=== PATIENT | female | born 1965 | race Caucasian/White ===

== ENCOUNTER 2023-09-25 21:07 | Inpatient (IN) | payer OTHER, SELFPAY ==
[2023-09-25] VITALS (8 sets, daily range): BP systolic 134–171; BP diastolic 63–81; PULSE 79–87; RESP 16–18; TEMP 36.8; O2SAT 95–97; BMI 42.0; BMI 41.0
--- NOTE | 2023-09-25 21:17 | CRLHL7_ITS ---
For Patients: As a result of the Century Cures Act, medical imaging exams and procedure reports are released immediately into your electronic medical record. You may view this report before your referring provider. If you have questions, please contact your health care provider. CLINICAL HISTORY: Left facial paralysis; headache and neck pain. TECHNIQUE: Standard helical CT image acquisition through the head was performed. COMPARISON: None available. FINDINGS: No CT evidence of acute intracranial hemorrhage, extra-axial collection, mass effect or midline shift. Barraza-white matter differentiation is preserved. The ventricles are normal in size and morphology. The calvarium is unremarkable. The orbits are unremarkable. Very mild mucosal thickening of the maxillary sinuses as well as the left sphenoid sinus. IMPRESSION: No CT evidence of acute intracranial abnormality. Please note that all CT scans at this facility use dose modulation, iterative reconstruction, and/or weight-based dosing when appropriate to reduce radiation dose to as low as reasonably achievable. Dictated by Arthur Rose MD @ 09/25/2023 10:34:25 PM (Electronically Signed)
--- NOTE | 2023-09-25 21:17 | CRLHL7_ITS ---
For Patients: As a result of the Century Cures Act, medical imaging exams and procedure reports are released immediately into your electronic medical record. You may view this report before your referring provider. If you have questions, please contact your health care provider. CLINICAL HISTORY: Left facial paralysis; headache and neck pain. TECHNIQUE: Standard helical CT image acquisition through the neck was performed after intravenous contrast bolus enhancement. 3D and MIP reconstructions were performed at a separate workstation and permanently archived. COMPARISON: None available. FINDINGS: The origins of the great vessels from the aortic arch are patent. The common carotid arteries are patent. No significant luminal stenoses of the proximal ICAs by NASCET criteria. The more distal cervical segments of the ICAs are patent. The origins and cervical segments of the vertebral arteries are patent. IMPRESSION: Patent cervical arterial vasculature without hemodynamically significant luminal stenosis. Please note that all CT scans at this facility use dose modulation, iterative reconstruction, and/or weight-based dosing when appropriate to reduce radiation dose to as low as reasonably achievable. Dictated by Arthur Rose MD @ 09/25/2023 10:38:28 PM (Electronically Signed)
--- NOTE | 2023-09-25 21:17 | CRLHL7_ITS ---
For Patients: As a result of the Century Cures Act, medical imaging exams and procedure reports are released immediately into your electronic medical record. You may view this report before your referring provider. If you have questions, please contact your health care provider. CLINICAL HISTORY: Left-sided facial paralysis; headache and neck pain. TECHNIQUE: Standard helical CT image acquisition through the head following the administration of intravenous contrast was performed. 3D and MIP reconstructions were performed at a separate workstation and permanently archived. COMPARISON: None available. FINDINGS: No intracranial proximal large vessel occlusion or flow-limiting luminal stenosis. No evidence of cerebral aneurysm. No findings to suggest an arterial-venous shunting lesion. The major dural venous sinuses and deep venous system are patent. IMPRESSION: No intracranial proximal large vessel occlusion, flow-limiting luminal stenosis, or cerebral aneurysm. Please note that all CT scans at this facility use dose modulation, iterative reconstruction, and/or weight-based dosing when appropriate to reduce radiation dose to as low as reasonably achievable. Dictated by Arthur Rose MD @ 09/25/2023 10:40:28 PM (Electronically Signed)
[2023-09-25] MEDS: ASPIRIN 81 MG TAB.CHEW 324 MG PO (21:30)
--- NOTE | 2023-09-25 21:40 | ED_ITS ---
HPI - General Adult General Date Seen: 09/25/23 Chief complaint: Neuro Symptoms/Altered Deficit Stated complaint: Possible stroke--L side face numb Time Seen by Provider: 09/25/23 21:13 Source: patient and family Mode of arrival: ambulatory Limitations: no limitations History of Present Illness HPI narrative: Patient is a 57-year-old here for evaluation of left facial droop. She says that a friend of hers mentions something about yesterday but she did not really notice it until today. She is not able to move the left side of her face and is not able to close the left eye. Denies any sensory changes or pain. No other neurologic complaints, no history of similar. She says she takes medicine for blood pressure, and ?old lady pills, not clear with that means. She has not had any fevers or illness, no rashes. She denies tobacco use, social alcohol. Related Data Home Medications ?Medication ?Instructions ?Recorded ?Confirmed hydrochlorothiazide 12.5 mg capsule 12.5 mg PO DAILY 09/25/23 09/25/23 hydroxyzine HCl 10 mg tablet 10 mg PO 3XD 09/25/23 09/25/23 ospemifene 60 mg tablet (Osphena) 60 mg PO DAILY 09/25/23 09/25/23 Allergies Allergy/AdvReac Type Severity Reaction Status Date / Time Penicillins Allergy Unknown Verified 09/25/23 22:00 Review of Systems Status of ROS: Reports: 10 or more systems reviewed and unremarkable except as noted in History and below Exam Narrative: Exam Narrative: Vital signs as noted above. In general, an alert, nontoxic woman. She is conversant, pleasant. Head: Normocephalic, atraumatic. Eyes: Pupils are equal reactive. Extraocular movements are full. Conjunctivae are normal. ENT: Mucous membranes are moist. Throat is normal. Neck: Supple without lymphadenopathy. Heart: Regular rate and rhythm. No murmur or rub. Lungs: Clear bilaterally. No increased work of breathing, crackles or wheezes. Abdomen: Soft and nontender. No organomegaly. Extremities: Well perfused. No edema. No calf tenderness. Pulses intact. Neurologic: Patient is alert and oriented to person and place. Speech is fluent. Left facial paralysis most prominent in the lower face, she does have partial movement of the forehead. She is not able to close left eye. Sensation is intact. Moves all extremities equally. Gait stable. Affect: Normal. Skin: Warm and dry. Well perfused. Const: Vital Signs, click to edit/add: Vital Signs - 24 hr 09/25/23 21:14 09/25/23 22:11 09/25/23 22:12 Pulse Rate 82 79 Pulse Rate [Pulse Oximeter] 87 Respiratory Rate 16 16 Blood Pressure 134/63 Blood Pressure [Le ft Upper Arm] 166/81 H Pulse Oximetry 95 96 97 Oxygen Delivery Me thod Room Air 09/25/23 22:15 Pulse Rate 79 Pulse Rate [Pulse Oximeter] Respiratory Rate Blood Pressure Blood Pressure [Le ft Upper Arm] Pulse Oximetry 95 Oxygen Delivery Me thod Documenting provider has reviewed patient's vital signs: yes Course Course ED Course: Following brief initial evaluation, I ordered a CT and CT angiogram. I did talk with Neurology about this patient. It sounds as if symptoms likely started sometime yesterday, overall most suggestive of a Monroy's palsy, but will obtain the CT and CT angiogram tonight. It is after hours an MRI is not available. MRI recommended, either inpatient tomorrow morning or outpatient if patient declines admission. I ordered aspirin 324 mg. Labs pending. EKG by my review shows a sinus rhythm, ventricular rate of 80, right bundle-branch block. CT and CT angiogram read by a Radiology is negative. Of note her labs show sodium of 120, hemoglobin is 9.7. She is uncertain if she has been anemic in the past, did have some blood in her stool at 1 point and had a colonoscopy which she tells me was unremarkable. She says she has also had endoscopy which showed some damage to her esophagus from gastroesophageal reflux, but no ulcers. It does not sound like she has been significantly symptomatic related to the sodium, I did order normal saline but elected not to use 3% saline at this time. Other labs are unremarkable. I recommended inpatient stay for MRI tomorrow to rule out a central cause for her facial weakness, as well as monitor sodium level. 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 She is agreeable. Vital Signs Vital signs: Initial Vital Signs Pulse Rate 87 09/25/23 21:14 Respiratory Rate 16 09/25/23 21:14 Blood Pressure 166/81 H 09/25/23 21:14 Blood Pressure Mean 109 H 09/25/23 21:14 Blood Pressure Position Supine 09/25/23 21:14 Pulse Oximetry 95 09/25/23 21:14 Oxygen Delivery Method Room Air 09/25/23 21:14 Vital Signs Pulse Rate 87 09/25/23 21:14 Respiratory Rate 16 09/25/23 21:14 Blood Pressure 166/81 H 09/25/23 21:14 Pulse Oximetry 95 09/25/23 21:14 Oxygen Delivery Method Room Air 09/25/23 21:14 Pulse Rate 79 09/25/23 22:15 Respiratory Rate 16 09/25/23 22:12 Blood Pressure 134/63 09/25/23 22:12 Pulse Oximetry 95 09/25/23 22:15 Oxygen Delivery Method Room Air 09/25/23 21:14 Medications Administered Medications: Discontinued Medications Generic Name Dose Route Start Last Admin Trade Name Freq PRN Reason Stop Dose Admin Aspirin 324 mg 09/25/23 21:17 09/25/23 21:30 Aspirin 81 Mg Tab.Chew PO 09/25/23 21:18 324 mg ONCE ONE Administration Medical Decision Making Lab Data Labs: Lab Results 09/25/23 Range/Units 21:17 WBC 5.83 (4.50-11.00) K/uL RBC 3.64 L (4.00-5.20) m/uL Hgb 9.7 L (12.0-16.0) gm/dL Hct 29.4 L (33.0-51.0) % MCV 81 (80-100) fL MCH 27 (26-34) pg MCHC 33 (32-36) gm/dL RDW Coeff of [place] 14.6 (11.5-15.5) % Plt Count 278 (140-440) K/uL Neut % (Auto) 66.8 (42.0-72.0) % Lymph % (Auto) 17.2 L (20-44) % [place] % (Auto) 13.6 H (0.0-11.0) % Eos % (Auto) 1.4 (0.0-7.0) % Baso % (Auto) 1.0 (0.0-3.0) % Neut # (Auto) 3.90 (1.7-7.0) K/uL Lymph # (Auto) 1.00 (0.90-2.90) K/uL [place] # (Auto) 0.80 (0.00-0.90) K/UL Eos # (Auto) 0.08 (0.00-0.50) K/uL Baso # (Auto) 0.06 (0.00-0.30) K/uL Abs Immat Gran (auto) 0.00 (0.00-0.30) K/uL Imm/Tot Granulo (auto) 0.0 % ESR 35 H (2-20) mm/hr Sodium 120 L* (135-149) mmol/L Potassium 3.3 L (3.6-5.1) mmol/L Chloride 86 L (96-114) mmol/L Carbon Dioxide 26 (20-32) mmol/L Anion Gap 8 (7-15) mEq/L BUN 15 (7-30) mg/dL Creatinine 1.3 (0.5-1.5) mg/dL Estimated Creat Clear 34.71 Estimated GFR 48 ml/min Glucose 108 (60-115) mg/dL Calcium 8.7 (8.4-10.6) mg/dL C-Reactive Protein 0.6 (0.5-1.0) mg/dL Discharge Plan Discharge Clinical Impression: Weakness on left side of face, Hyponatremia Patient Disposition: Admitted As Observation Condition: Stable
[2023-09-25 21:48] LABS: Basophils Absolute Auto 0.06 K/uL (0.00-0.30); Eosinophils Absolute Auto 0.08 K/uL (0.00-0.50); Eosinophils Percent Auto 1.4 % (0.0-7.0); Hematocrit 29.4 % (33.0-51.0); Hemoglobin* 9.7 gm/dL (12.0-16.0); Lymphocytes Percent Auto 17.2 % (20-44); Mean Corpuscular HGB Conc 33 gm/dL (32-36); Mean Corpuscular Hemoglobin 27 pg (26-34); Mean Corpuscular Volume 81 fL (80-100); Monocytes Percent Auto 13.6 % (0.0-11.0); Neutrophils Percent Auto 66.8 % (42.0-72.0); Platelet Count* 278 K/uL (140-440); RDW Coefficient of Variation % 14.6 % (11.5-15.5); Red Blood Count 3.64 m/uL (4.00-5.20); White Blood Count* 5.83 K/uL (4.50-11.00)
[2023-09-25 21:50] LABS: Slide Review Reflex No
[2023-09-25 22:12] LABS: Chloride* 86 mmol/L (96-114)
[2023-09-25 22:13] LABS: Potassium* 3.3 mmol/L (3.6-5.1)
[2023-09-25 22:15] LABS: Creatinine* 1.3 mg/dL (0.5-1.5); Est. Creatinine Clearance* 34.71; Estimated Glomerular Filt Rate 48 ml/min
[2023-09-25 22:16] LABS: Anion Gap 8 mEq/L (7-15); Blood Urea Nitrogen* 15 mg/dL (7-30); Calcium* 8.7 mg/dL (8.4-10.6); Carbon Dioxide* 26 mmol/L (20-32); Glucose* 108 mg/dL (60-115)
[2023-09-25 22:19] LABS: C Reactive Protein* 0.6 mg/dL (0.5-1.0)
[2023-09-25 22:25] LABS: Sodium* 120 mmol/L (135-149)
[2023-09-25 22:30] LABS: Erythrocyte SedimentationRate* 35 mm/hr (2-20)
--- NOTE | 2023-09-25 22:55 | PM.IMHP1 ---
Hospitalist- H&P: HPI History of Present Illness Date Seen: 09/25/23 Chief complaint: Possible stroke--L side face numb Narrative: ADMISSION HISTORY AND PHYSICAL - HOSPITALIST Chief Complaint: Left facial droop HPI: 57-year-old with a history of osteopenia, daily alcohol use, hypertension, obesity presents with 2 day history of left-sided facial droop. She states somebody noticed it yesterday but she did make much of it. No tingling or paresthesias. She noticed looking in the mirror today that she noticed a little drooping at her corner of her mouth and eye. She had trouble drinking from a cup. Friends today encouraged her to get checked out for a stroke. No head injury. some vomiting/nausea this week. mild headache after arriving in the ED. Reports a lot of beer drinking this weekend. Drinks daily, usually just beer. She is seen in [place] at [facility]. She had her coco on her phone and I was able to see a sodium from June 2023 of 135 and normal potassium. Creat was 1.23. She takes HCTZ for hypertension, atarax for rashes/itching with zyrtec. She takes evista for osteopenia/porosis. ER COURSE: CTA of her head neck were obtained, neuro consult obtained. Labs noted a significant hyponatremia of 120 and a mild hypokalemia. Moderate anemia as well. No previous records in [facility]. Hospital medicine team was asked to admit for the hyponatremia and follow-up on the left facial drop with MR in the am. CODE STATUS: FULL CODE EMERGENCY CONTACT PLAN: Name Aki Oates Rel To Pat I've updated the PFSH, medications and allergies in the Expanse tabs. INVESTIGATIONS: LABS/MICRO/ECG/IMAGING Initially 166/81, 134/63 Pulse 70s to 80s Respiratory rate 16 Pulse ox 97% on room Stated weight 97.5 CBC reflects a normal white blood cell count. Hemoglobin 9.7. Normal platelets. MCV 81. ESR 35 Sodium 120. Potassium 3.3. Chloride 86. Creatinine 1.3, BUN 15 Glucose 108 C reactive protein 0.6 CTA, CT head Patent cervical arterial vasculature without hemodynamically significant luminal stenosis. No intracranial proximal large vessel occlusion, flow-limiting luminal stenosis, or cerebral aneurysm. No CT evidence of acute intracranial abnormality. REVIEW OF SYSTEMS: 12-point ROS completed with patient and negative unless otherwise stated in HPI or below. PHYSICAL EXAM: CONSTITUTIONAL: Calm, appropriate. VITAL SIGNS: see record. HEENT: Normocephalic, atraumatic. PERRL, EOMI, conjunctivae pink, no scleral icterus. Ears and nose externally normal. Pharynx normal. NECK: No JVD. No carotid bruit, no thyromegaly, no adenopathy. CHEST: Clear to auscultation bilaterally HEART: S1 and S2 normal. No harsh murmurs. Edema MUSCULOSKELETAL: No gross joint deformity or swelling. NEURO: Clear left sided facial weakness (brow, eye, mouth), limited to face. the rest of the exam is normal. SKIN: No rashes, petechiae, concerning changes PSYCHIATRIC: Euthymic. ADMIT TO MEDSURG: FLOOR CARE DVT: SCDs, ambulation, short hospital stay GI: PO intake Time spent: Today I spent 75 minutes seeing the patient, discussing the patient with ER staff, reviewing Expanse and EPIC notes/diagnostics, discussing the care plan with our care time that includes social work, PT/OT, pharmacy, RT, fci and documenting my impressions and plan in the medical record. [facility] Medical History (Updated 09/25/23 @ 23:41 by Flower Trinh MD) Environmental allergies ?Z91.09 - Other allergy status, other than to drugs and biological substances (ICD-10) Obesity ?E66.9 - Obesity, unspecified (ICD-10) Osteopenia ?M85.80 - Other specified disorders of bone density and structure, unspecified site (ICD-10) Hypertension ?I10 - Essential (primary) hypertension (ICD-10) Alcohol abuse, daily use ?F10.10 - Alcohol abuse, uncomplicated (ICD-10) Surgical History (Updated 09/25/23 @ 23:41 by Flower Trinh MD) Status post surgical removal of malignant neoplasm of skin ?Z98.890 - Other specified postprocedural states (ICD-10) History of endometrial ablation ?Z98.890 - Other specified postprocedural states (ICD-10) History of root canal procedure ?Z98.890 - Other specified postprocedural states (ICD-10) S/P hysterectomy ?Z90.710 - Acquired absence of both cervix and uterus (ICD-10) Social History What is your current living situation?: I presently have a place to live Problems where you live: other Problems where you live details: N/A In the past 12 months, utilities in danger of being shut off: no In past 12 months, lack of transportation kept you from medical appts, meetings, work, or getting things needed for daily living: no In the past 12 mos, have been you worried that your food would run out before you had money to buy more?: never true In the past 12 mos, the food you bought just didn't last and you didn't have money to buy more?: never true Highest level of school completed/degree received: 12th grade, no diploma Smoking Status: Never smoker How often do you have a drink containing alcohol: 2-3 times a week Alcohol type: beer How often do you have six or more drinks on one occasion: Never AUDIT-C Alcohol total score: 3 Non-prescribed substance use: denies use Caffeine: Yes How often does anyone, including family, friends and others, physically hurt you: never How often does anyone, including family, friends and others, insult or talk down to you: never How often does anyone, including family, friends and others, threaten you with harm: never How often does anyone, including family, friends and others, scream or curse at you: never service: No Meds Home Medications and Allergies Home Medications ?Medication ?Instructions ?Recorded ?Confirmed ?Type hydrochlorothiazide 12.5 mg capsule 12.5 mg PO DAILY 09/25/23 09/25/23 History hydroxyzine HCl 10 mg tablet 10 mg PO 3XD 09/25/23 09/25/23 History ospemifene 60 mg tablet (Osphena) 60 mg PO DAILY 09/25/23 09/25/23 History Allergies Allergy/AdvReac Type Severity Reaction Status Date / Time Penicillins Allergy Unknown Verified 09/25/23 22:00 Exam Const: Vital Signs, click to edit/add: Vital Signs - 24 hr 09/25/23 21:14 09/25/23 22:11 09/25/23 22:12 Pulse Rate 82 79 Pulse Rate [Pulse Oximeter] 87 Respiratory Rate 16 16 Blood Pressure 134/63 Blood Pressure [Le ft Upper Arm] 166/81 H Pulse Oximetry 95 96 97 Oxygen Delivery Me thod Room Air 09/25/23 22:15 Pulse Rate 79 Pulse Rate [Pulse Oximeter] Respiratory Rate Blood Pressure Blood Pressure [Le ft Upper Arm] Pulse Oximetry 95 Oxygen Delivery Me thod Hospitalist - H&P: Result Labs Labs: Short CBC 09/25/23 Range/Units 21:17 WBC 5.83 (4.50-11.00) K/uL Hgb 9.7 L (12.0-16.0) gm/dL Hct 29.4 L (33.0-51.0) % Plt Count 278 (140-440) K/uL BMP 09/25/23 21:17 Sodium 120 L* Potassium 3.3 L Chloride 86 L Carbon Dioxide 26 BUN 15 Creatinine 1.3 Glucose 108 Calcium 8.7 Assessment and Plan Assessment and plan (1) Hyponatremia: Problem comment: -no FENA, serum or urine osm available -hold HCTZ -protein supplements in lieu of salt tabs -free water restriction -NS -asymptomatic so holding on 3% therapy -q4 hour labs Status: Acute (2) Weakness on left side of face: Problem comment: -neuro consult indicates likely [place] Palsy -MR in the am -monitor neuro symptoms Status: Acute (3) Alcohol abuse, daily use: Problem comment: -beer drinker -getting UDS and alcohol level -CIWA ordered Status: Acute (4) Hypertension: Problem comment: -hold HCTZ -monitor Status: Acute (5) Obesity: Status: Acute (6) Environmental allergies: Problem comment: atarax and zyrtec prn Status: Inactive
[2023-09-25] MEDS: PANTOPRAZOLE SODIUM 40 MG INJ IVP (23:08)
[2023-09-25] MEDS: 0.9 % SODIUM CHLORIDE 1000 ml 1,000 ML IV (23:09)
[2023-09-26] VITALS (13 sets, daily range): BP systolic 129–189; BP diastolic 63–85; PULSE 68–97; RESP 18–20; TEMP 36.7–37.2; O2SAT 95–97
[2023-09-26 00:13] LABS: Albumin* 4.3 g/dL (3.3-5.0)
[2023-09-26 00:15] LABS: Iron* 41 ug/dL (37-170)
[2023-09-26] MEDS: 0.9 % SODIUM CHLORIDE 1000 ml 1,000 ML IV (00:15)
[2023-09-26 00:16] LABS: Alanine Aminotransferase* 39 U/L (4-35); Alkaline Phosphatase* 79 U/L (40-150); Aspartate Amino Transferase* 78 U/L (12-35); Bilirubin Direct* 0.5 mg/dL (0.0-0.5); Bilirubin Total* 0.6 mg/dL (0.1-1.5); Total Protein* 8.5 g/dL (6.0-8.3)
[2023-09-26] MEDS: 0.9 % SODIUM CHLORIDE 1000 ml 1,000 ML 125 ML IV (00:16)
[2023-09-26 00:25] LABS: Percent Iron Saturation 9 % (20-50); Total Iron Binding Capacity 475 ug/dL (265-497)
[2023-09-26 01:57] LABS: Amphetamine Screen Urine Negative (Negative); Barbiturate Screen Urine Negative (Negative); Benzodiazepines Screen Urine Negative (Negative); Cannabinoid Screen Urine POSITIVE (Negative); Cocaine Screen Urine Negative (Negative); Methadone Screen Urine Negative (Negative); Methamphetamines Screen Urine Negative (Negative); Opiate Screen Urine Negative (Negative); Oxycodone Screen Urine Negative (Negative); Phencyclidine Screen Urine Negative (Negative); Tricyclic Antidepressant Urine Negative (Negative)
[2023-09-26 02:12] LABS: Chloride* 92 mmol/L (96-114); Potassium* 3.4 mmol/L (3.6-5.1); Sodium* 126 mmol/L (135-149)
[2023-09-26 02:14] LABS: Creatinine* 1.2 mg/dL (0.5-1.5); Estimated Glomerular Filt Rate 53 ml/min
[2023-09-26 02:15] LABS: Appearance Urine Clear (Clear); Bilirubin Urine Negative (Negative); Blood Urine 2+ (Negative); Color Urine Yellow (Yellow); Glucose Urine Negative (Negative); Ketones Urine Negative (Negative); Leukocyte Esterase Urine Trace (Negative); Nitrite Urine Negative (Negative); Protein Urine Negative (Negative); Urobilinogen Urine 0.2 (0.2-1.0)
[2023-09-26 02:15] LABS: Anion Gap 8 mEq/L (7-15); Blood Urea Nitrogen* 13 mg/dL (7-30); Calcium* 8.3 mg/dL (8.4-10.6); Carbon Dioxide* 26 mmol/L (20-32); Glucose* 88 mg/dL (60-115)
[2023-09-26 02:16] LABS: Bacteria Urine Few; RBC Urine 0-2 (0-2); Squamous Epithelial Cell Urine Few (None-Few)
[2023-09-26] MEDS: ACETAMINOPHEN 325 MG TABLET PO ×2 (03:02→10:29)
--- NOTE | 2023-09-26 04:28 | PC.NURSE ---
Shift note: Pt arrived to the unit on a wheelchair accompanied by Ed staff. Conscious, alert, and oriented on arrival. Cognitive intact, neuro intact except facial asymmetry and drooping of the right side of the face. IV N/S 1000ml bolus given for low Na level as prescribed. Pt refused SCD, 12 Lead EKG done, tele applied and appeared to be 1st degree HB. CWAIR monitored and the highest number was 2. Tylenol given for headache.MRI questionnaire completed. Pt oriented to her room and educated on the hospital visiting policy and POC. Bp was high on admission but tends to decrease overnight. Pt had adequate sleep with minimal interruption from frequency of urination.
[2023-09-26 08:26] LABS: Sodium* 128 mmol/L (135-149)
[2023-09-26 08:44] LABS: Chloride* 97 mmol/L (96-114); Potassium* 3.4 mmol/L (3.6-5.1)
[2023-09-26 08:46] LABS: Creatinine* 1.2 mg/dL (0.5-1.5); Estimated Glomerular Filt Rate 53 ml/min
[2023-09-26 08:47] LABS: Anion Gap 3 mEq/L (7-15); Blood Urea Nitrogen* 13 mg/dL (7-30); Calcium* 8.5 mg/dL (8.4-10.6); Carbon Dioxide* 28 mmol/L (20-32); Glucose* 89 mg/dL (60-115)
--- NOTE | 2023-09-26 09:45 | P.IMPN_ITS ---
Progress Note: A&P Assessment and plan (1) Weakness on left side of face: Problem details: -neuro consult indicates likely [place] Palsy 09/25 MRI Brain negative for CVA; Neurology consult ordered; ?start prednisone will defer to neurology Status: Acute (2) Hyponatremia: Problem details: -no FENA, serum or urine osm available -hold HCTZ -protein supplements in lieu of salt tabs -free water restriction -NS -asymptomatic so holding on 3% therapy -q4 hour labs 09/25: sodium has corrected to quickly from 120 to 128 Switch to D5W goal correction 4-6 meq over 24 hours; ideally goal sodium 126-128 by 9pm tonight serial sodium adjust D5W as needed Status: Acute (3) Alcohol abuse, daily use: Problem details: -beer drinker -getting UDS and alcohol level -CIWA ordered Status: Acute (4) Hypertension: Problem details: -hold HCTZ -monitor Status: Acute Plan anticipated discharge 1 day pending Sodium above 130 updated Subjective Date Seen: 09/26/23 Interval history: patient endorses headache denies hallucinations denies tremors at bedside MRI Brain negative for CVA sodium over corrected this AM Exam Narrative: Exam Narrative: Gen: no acute distress HEENT: NCAT EOMI mmm Neck: Supple CV: RRR normal s1 s2 Lungs: CTAB Abd: Soft,nt, nd Neuro: Alert, oriented, left facial droop Psych: appropriate affect MSK: age appropriate muscle mass Skin; Warm, dry no rash on face Const: Vital Signs, click to edit/add: Vital Signs - 24 hr 09/25/23 21:14 09/25/23 22:11 09/25/23 22:12 Temperature Pulse Rate 82 79 Pulse Rate [Left P ulse Oximeter] Pulse Rate [Pulse Oximeter] 87 Respiratory Rate 16 16 Blood Pressure 134/63 Blood Pressure [Le ft Arm] Blood Pressure [Le ft Upper Arm] 166/81 H Pulse Oximetry 95 96 97 Oxygen Delivery Me thod Room Air Oxygen Flow Rate 09/25/23 22:15 09/25/23 23:18 09/25/23 23:40 Temperature 98.2 F Pulse Rate 79 Pulse Rate [Left P ulse Oximeter] 80 Pulse Rate [Pulse Oximeter] Respiratory Rate 18 18 Blood Pressure Blood Pressure [Le ft Arm] 171/72 H Blood Pressure [Le ft Upper Arm] Pulse Oximetry 95 95 95 Oxygen Delivery Me thod Room Air Room Air Oxygen Flow Rate 09/25/23 23:57 09/25/23 23:58 09/26/23 01:00 Temperature 98.2 F 98.2 F 98.9 F Pulse Rate Pulse Rate [Left P ulse Oximeter] 80 80 84 Pulse Rate [Pulse Oximeter] Respiratory Rate 18 18 18 Blood Pressure Blood Pressure [Le ft Arm] 171/72 H 171/72 H 169/78 H Blood Pressure [Le ft Upper Arm] Pulse Oximetry 97 97 97 Oxygen Delivery Me thod Room Air Room Air Room Air Oxygen Flow Rate 0 0 0 09/26/23 01:43 09/26/23 01:43 09/26/23 02:00 Temperature 98.1 F Pulse Rate 88 Pulse Rate [Left P ulse Oximeter] 84 Pulse Rate [Pulse Oximeter] Respiratory Rate 18 18 Blood Pressure Blood Pressure [Le ft Arm] 170/81 H Blood Pressure [Le ft Upper Arm] Pulse Oximetry 97 96 Oxygen Delivery Me thod Room Air Room Air Oxygen Flow Rate 0 0 09/26/23 02:53 09/26/23 06:00 09/26/23 07:35 Temperature 98.1 F 98.6 F Pulse Rate Pulse Rate [Left P ulse Oximeter] 97 89 Pulse Rate [Pulse Oximeter] Respiratory Rate 18 18 Blood Pressure Blood Pressure [Le ft Arm] 129/63 145/71 H Blood Pressure [Le ft Upper Arm] Pulse Oximetry 95 96 96 Oxygen Delivery Me thod Room Air Room Air Oxygen Flow Rate 0 09/26/23 07:36 09/26/23 07:39 Temperature 98.1 F 98.1 F Pulse Rate Pulse Rate [Left P ulse Oximeter] 88 88 Pulse Rate [Pulse Oximeter] Respiratory Rate 20 20 Blood Pressure Blood Pressure [Le ft Arm] 149/76 H 149/76 H Blood Pressure [Le ft Upper Arm] Pulse Oximetry 96 96 Oxygen Delivery Me thod Room Air Oxygen Flow Rate 0 Labs Labs: Laboratory Results - last 24 hr 09/25/23 09/25/23 09/25/23 21:17 21:24 23:57 WBC 5.83 RBC 3.64 L Hgb 9.7 L Hct 29.4 L MCV 81 MCH 27 MCHC 33 RDW Coeff of [place] 14.6 Plt Count 278 Neut % (Auto) 66.8 Lymph % (Auto) 17.2 L [place] % (Auto) 13.6 H Eos % (Auto) 1.4 Baso % (Auto) 1.0 Neut # (Auto) 3.90 Lymph # (Auto) 1.00 [place] # (Auto) 0.80 Eos # (Auto) 0.08 Baso # (Auto) 0.06 Abs Immat Gran (auto) 0.00 Imm/Tot Granulo (auto) 0.0 ESR 35 H Sodium 120 L* Potassium 3.3 L Chloride 86 L Carbon Dioxide 26 Anion Gap 8 BUN 15 Creatinine 1.3 Estimated Creat Clear 34.71 Estimated GFR 48 Glucose 108 Calcium 8.7 Iron 41 TIBC 475 % Saturation 9 L Total Bilirubin 0.6 Direct Bilirubin 0.5 AST 78 H ALT 39 H Alkaline Phosphatase 79 C-Reactive Protein 0.6 Total Protein 8.5 H Albumin 4.3 Urine Color Urine Appearance Urine pH Ur Specific [place] Urine Protein Urine Glucose (UA) Urine Ketones Urine Blood Urine Nitrite Urine Bilirubin Urine Urobilinogen Ur Leukocyte Esterase Urine RBC Urine WBC Ur Squamous Epith Cells Urine Bacteria Urine Opiates Screen Ur Oxycodone Screen Urine Methadone Screen Ur Barbiturates Screen U Tricyclic Antidepress Ur Phencyclidine Scrn Ur Amphetamines Screen U Methamphetamines Scrn U Benzodiazepines Scrn Urine Cocaine Screen U Marijuana (THC) Screen Ur Drug Screen Comment Ethyl Alcohol 0.10 H Lab Acknowledgement Test Added 09/26/23 09/26/23 09/26/23 01:10 01:25 01:45 WBC RBC Hgb Hct MCV MCH MCHC RDW Coeff of [place] Plt Count Neut % (Auto) Lymph % (Auto) [place] % (Auto) Eos % (Auto) Baso % (Auto) Neut # (Auto) Lymph # (Auto) [place] # (Auto) Eos # (Auto) Baso # (Auto) Abs Immat Gran (auto) Imm/Tot Granulo (auto) ESR Sodium 126 L Potassium 3.4 L Chloride 92 L Carbon Dioxide 26 Anion Gap 8 BUN 13 Creatinine 1.2 Estimated Creat Clear 41.40 Estimated GFR 53 Glucose 88 Calcium 8.3 L Iron TIBC % Saturation Total Bilirubin Direct Bilirubin AST ALT Alkaline Phosphatase C-Reactive Protein Total Protein Albumin Urine Color Yellow Urine Appearance Clear Urine pH 7.0 Ur Specific [place] 1.010 Urine Protein Negative Urine Glucose (UA) Negative Urine Ketones Negative Urine Blood 2+ A Urine Nitrite Negative Urine Bilirubin Negative Urine Urobilinogen 0.2 Ur Leukocyte Esterase Trace A Urine RBC 0-2 Urine WBC 2-5 Ur Squamous Epith Cells Few Urine Bacteria Few A Urine Opiates Screen Negative Ur Oxycodone Screen Negative Urine Methadone Screen Negative Ur Barbiturates Screen Negative U Tricyclic Antidepress Negative Ur Phencyclidine Scrn Negative Ur Amphetamines Screen Negative U Methamphetamines Scrn Negative U Benzodiazepines Scrn Negative Urine Cocaine Screen Negative U Marijuana (THC) Screen POSITIVE A Ur Drug Screen Comment See Note Ethyl Alcohol Lab Acknowledgement 09/26/23 09/26/23 07:58 08:25 WBC RBC Hgb Hct MCV MCH MCHC RDW Coeff of [place] Plt Count Neut % (Auto) Lymph % (Auto) [place] % (Auto) Eos % (Auto) Baso % (Auto) Neut # (Auto) Lymph # (Auto) [place] # (Auto) Eos # (Auto) Baso # (Auto) Abs Immat Gran (auto) Imm/Tot Granulo (auto) ESR Sodium 128 L Potassium 3.4 L Chloride 97 Carbon Dioxide 28 Anion Gap 3 L BUN 13 Creatinine 1.2 Estimated Creat Clear 41.40 Estimated GFR 53 Glucose 89 Calcium 8.5 Iron TIBC % Saturation Total Bilirubin Direct Bilirubin AST ALT Alkaline Phosphatase C-Reactive Protein Total Protein Albumin Urine Color Urine Appearance Urine pH Ur Specific [place] Urine Protein Urine Glucose (UA) Urine Ketones Urine Blood Urine Nitrite Urine Bilirubin Urine Urobilinogen Ur Leukocyte Esterase Urine RBC Urine WBC Ur Squamous Epith Cells Urine Bacteria Urine Opiates Screen Ur Oxycodone Screen Urine Methadone Screen Ur Barbiturates Screen U Tricyclic Antidepress Ur Phencyclidine Scrn Ur Amphetamines Screen U Methamphetamines Scrn U Benzodiazepines Scrn Urine Cocaine Screen U Marijuana (THC) Screen Ur Drug Screen Comment Ethyl Alcohol Lab Acknowledgement Test Added
[2023-09-26] MEDS: 5 % DEXTROSE 1000 ML 1,000 ML 50 ML IV (10:30)
[2023-09-26] MEDS: THIAMINE 100 MG TABLET PO (10:35)
[2023-09-26] MEDS: MULTIVITAMIN/MINERALS 1 TABLET 1 TAB PO (10:35)
--- NOTE | 2023-09-26 11:00 | CRLHL7_ITS ---
For Patients: As a result of the Century Cures Act, medical imaging exams and procedure reports are released immediately into your electronic medical record. You may view this report before your referring provider. If you have questions, please contact your health care provider. INDICATION: Left-sided facial weakness. TECHNIQUE: Multiplanar multisequence noncontrast MR images of the brain. COMPARISON: CT brain 09/25/2023. FINDINGS: Mild diffuse cerebral volume loss. No mass effect or midline shift. Few punctate FLAIR hyperintensities in the supratentorial white matter, typical for minimal chronic microvascular ischemic changes. Punctate susceptibility left occipital lobe, typical for a chronic microhemorrhage. No recent intracranial hemorrhage or pathologic extra-axial fluid collection. No diffusion restriction to suggest acute infarction. The major arterial flow voids of the skullbase are preserved. The globes are symmetric. Mild paranasal sinus mucosal thickening. Minimal mastoid fluid. IMPRESSION: 1. No acute infarction, mass effect, or recent intracranial hemorrhage. 2. Mild diffuse cerebral volume loss and minimal chronic microvascular ischemic changes. Dictated by Everardo Ervin MD @ 09/26/2023 9:22:11 AM (Electronically Signed)
[2023-09-26 13:35] LABS: Sodium* 129 mmol/L (135-149)
[2023-09-26] MEDS: predniSONE 20 MG TABLET 60 MG PO (16:03)
[2023-09-26] MEDS: VALACYCLOVIR HCL 500 MG TABLET PO ×2 (16:05→21:16)
[2023-09-26 16:39] LABS: Sodium* 130 mmol/L (135-149)
--- NOTE | 2023-09-26 18:28 | PC.NURSE ---
Pt alert and oriented. Pt had no complaints of pain but complaints of a headache for part of shift; see EMAR for intervention. Pt has left sided facial drooping. Pt went to MRI around 8am and MRI negative; see report. Pt had a neurology consult early afternoon; see report and new orders. Pt up independently in room. Pt?s CWAW scores have been between 0 and 2 during shift.?Labs are being drawn frequently to monitor Pt?s sodium level. Per MD Pt?s rate on 5% dextrose changed from 100 mL/hr to 200 ml/hr. MD will reassess after Pt?s 1999 lab draw.?
[2023-09-26] MEDS: CARBOXYMETHYLCELLULOSE (REFRESH PLUS) TEARS 1 DROP EYE-LEFT ×2 (18:59→23:39)
[2023-09-26] MEDS: 5 % DEXTROSE 1000 ML 1,000 ML 200 ML IV (20:02)
[2023-09-26 20:59] LABS: Sodium* 128 mmol/L (135-149)
--- NOTE | 2023-09-26 23:53 | PC.NURSE ---
patient alert and oriented, up ind in room, facial droop noted, per patient its not worse or better than it has been, tolerating regular diet, reporting headache, declined need for Tylenol, family present and supportive this evening.
[2023-09-26] MEDS: LOSARTAN POTASSIUM 50 MG TABLET PO (23:58)
[2023-09-27 00:22] LABS: Sodium* 128 mmol/L (135-149)
[2023-09-27 03:00] VITALS: BP 185/83; PULSE 82; RESP 18; TEMP 36.4; O2SAT 99
[2023-09-27 03:01] VITALS: PULSE 80
[2023-09-27] MEDS: CARBOXYMETHYLCELLULOSE (REFRESH PLUS) TEARS 1 DROP EYE-LEFT ×2 (03:09→06:33)
[2023-09-27] MEDS: 5 % DEXTROSE 1000 ML 1,000 ML 75 ML IV (05:53)
[2023-09-27 07:00] VITALS: BP 156/91; PULSE 75; PULSE 79; RESP 16; TEMP 36.6; O2SAT 96
[2023-09-27 07:07] LABS: Basophils Absolute Auto 0.01 K/uL (0.00-0.30); Basophils Percent Auto 0.2 % (0.0-3.0); Hematocrit 28.6 % (33.0-51.0); Hemoglobin* 9.1 gm/dL (12.0-16.0); Immature Granulocytes Abs Auto 0.02 K/uL (0.00-0.30); Immature Granulocytes Pct Auto 0.4 %; Lymphocytes Percent Auto 13.6 % (20-44); Mean Corpuscular HGB Conc 32 gm/dL (32-36); Mean Corpuscular Hemoglobin 27 pg (26-34); Mean Corpuscular Volume 84 fL (80-100); Monocytes Percent Auto 8.1 % (0.0-11.0); Neutrophils Percent Auto 77.7 % (42.0-72.0); Platelet Count* 275 K/uL (140-440); White Blood Count* 4.55 K/uL (4.50-11.00)
[2023-09-27 07:11] LABS: Slide Review Reflex No
[2023-09-27 07:16] LABS: Albumin* 3.8 g/dL (3.3-5.0); Chloride* 98 mmol/L (96-114)
[2023-09-27 07:17] LABS: Sodium* 131 mmol/L (135-149)
[2023-09-27 07:19] LABS: Anion Gap 5 mEq/L (7-15); Bilirubin Total* 0.5 mg/dL (0.1-1.5); Carbon Dioxide* 28 mmol/L (20-32); Creatinine* 1.1 mg/dL (0.5-1.5); Est. Creatinine Clearance* 45.17; Estimated Glomerular Filt Rate 59 ml/min
[2023-09-27 07:20] LABS: Alanine Aminotransferase* 29 U/L (4-35); Alkaline Phosphatase* 54 U/L (40-150); Aspartate Amino Transferase* 42 U/L (12-35); Blood Urea Nitrogen* 14 mg/dL (7-30); Calcium* 9.3 mg/dL (8.4-10.6); Glucose* 147 mg/dL (60-115); Total Protein* 7.8 g/dL (6.0-8.3)
--- NOTE | 2023-09-27 07:30 | PC.NURSE ---
23-07: Pleasant and cooperative. Indep in rm. Left side facial droop, eye drops to left eye q4h, pt tolerating well. Elevated BP, updated MD, received order for losartan. ?
[2023-09-27] MEDS: VALACYCLOVIR HCL 500 MG TABLET PO (08:23)
[2023-09-27] MEDS: MULTIVITAMIN/MINERALS 1 TABLET 1 TAB PO (08:24)
[2023-09-27] MEDS: LOSARTAN POTASSIUM 50 MG TABLET PO (08:24)
[2023-09-27] MEDS: predniSONE 20 MG TABLET 60 MG PO (08:24)
[2023-09-27] MEDS: THIAMINE 100 MG TABLET PO (08:24)
--- NOTE | 2023-09-27 09:03 | P.DS_ITS ---
DS: Providers Provider Date Seen: 09/27/23 Date of admission: 09/25/23 23:57 Primary care physician: Consuelo Canas MD Admitting Clinician: Flower Trinh MD Consults: Neurology Attending Physician on discharge: Layton Grimm MD Date of Discharge: 09/27/23 DS: Diagnosis Discharge Diagnosis (1) Hyponatremia: Status: Acute Problem details: 09/25: sodium has corrected to quickly from 120 to 128 Switch to D5W goal correction 4-6 meq over 24 hours; ideally goal sodium 126-128 by 9pm tonight serial sodium adjust D5W as needed 09/26: Sodium 131 at discharge, HCTZ stopped; hyponatremia likely secondary to alcoholism and HCTZ, should have pcp monitor Sodium levels; switched to losartan (2) Weakness on left side of face: Status: Acute Problem details: -neuro consult indicates likely [place] Palsy 09/25 MRI Brain negative for CVA; Neurology consult ordered Neurology felt symptoms likely secondary of left sided bells palsy 60 mg prednisone daily for 7 total days+Valacylovir+eye drops (3) Alcohol abuse, daily use: Status: Acute Problem details: -beer drinker -getting UDS and alcohol level -CIWA ordered -counseling provided (4) Hypertension: Status: Acute Problem details: -hold HCTZ -monitor -HCTZ stopped started on losartan DS: Summary Hospital Course Hospital Course: This is a 57F with PMhx of alcoholism who presented with hyponatremia (sodium 120). She was found to have left sided facial droop. MRI Brain showed no evidence of CVA. She was evaluated by Neurology and clinic presentation felt to be secondary to [place] Palsy. She was started on prednisone and valacyclovir. Her Sodium corrected to 131 with IVF and HCTZ was stopped Time Spent with Patient Time attestation: Total time spent providing and/or coordinating discharge services: Exam Narrative: Exam Narrative: Gen: no acute distress HEENT: NCAT EOMI mmm Neck: Supple CV: RRR normal s1 s2 Lungs: CTAB Abd: Soft,nt, nd Neuro: Alert, oriented, left facial droop Psych: appropriate affect MSK: age appropriate muscle mass Skin; Warm, dry no rash on face Const: Vital Signs, click to edit/add: Vital Signs - 24 hr 09/26/23 11:09/26/23 11:09/26/23 15:29 Temperature 98.3 F 98.3 F 98.1 F Pulse Rate Pulse Rate [Left P ulse Oximeter] 78 78 84 Respiratory Rate 18 18 18 Blood Pressure [Le ft Arm] 135/69 135/69 135/64 Pulse Oximetry 95 95 96 Oxygen Delivery Me thod Room Air Room Air Room Air Oxygen Flow Rate 0 09/26/23 15:29 09/26/23 15:31 09/26/23 19:00 Temperature 98.1 F 98.2 F Pulse Rate Pulse Rate [Left P ulse Oximeter] 84 68 Respiratory Rate 18 18 Blood Pressure [Le ft Arm] 135/64 189/85 H Pulse Oximetry 96 96 96 Oxygen Delivery Me thod Room Air Room Air Oxygen Flow Rate 0 0 09/26/23 23:00 09/26/23 23:00 09/26/23 23:00 Temperature 98.7 F Pulse Rate Pulse Rate [Left P ulse Oximeter] 77 Respiratory Rate 18 18 Blood Pressure [Le ft Arm] 177/84 H Pulse Oximetry 95 95 Oxygen Delivery Me thod Room Air Oxygen Flow Rate 0 09/27/23 03:00 09/27/23 03:01 09/27/23 07:00 Temperature 97.6 F Pulse Rate 80 75 Pulse Rate [Left P ulse Oximeter] 82 Respiratory Rate 18 Blood Pressure [Le ft Arm] 185/83 H Pulse Oximetry 99 Oxygen Delivery Me thod Room Air Oxygen Flow Rate 09/27/23 07:00 09/27/23 07:00 09/27/23 07:00 Temperature 97.8 F Pulse Rate Pulse Rate [Left P ulse Oximeter] 79 79 Respiratory Rate 16 16 Blood Pressure [Le ft Arm] 156/91 H Pulse Oximetry 96 96 Oxygen Delivery Me thod Room Air Oxygen Flow Rate DS: Data Data Completed and Pending Labs on day of discharge: Labs from last 24 hours 09/27/23 09/26/23 09/26/23 05:56 23:50 20:25 WBC 4.55 RBC 3.40 L Hgb 9.1 L Hct 28.6 L MCV 84 MCH 27 MCHC 32 RDW Coeff of [place] 15.0 Plt Count 275 Neut % (Auto) 77.7 H Lymph % (Auto) 13.6 L [place] % (Auto) 8.1 Eos % (Auto) 0.0 Baso % (Auto) 0.2 Neut # (Auto) 3.50 Lymph # (Auto) 0.60 L [place] # (Auto) 0.40 Eos # (Auto) 0.00 Baso # (Auto) 0.01 Abs Immat Gran (auto) 0.02 Imm/Tot Granulo (auto) 0.4 Sodium 131 L 128 L 128 L Potassium 4.0 Chloride 98 Carbon Dioxide 28 Anion Gap 5 L BUN 14 Creatinine 1.1 Estimated Creat Clear 45.17 Estimated GFR 59 Glucose 147 H Calcium 9.3 Total Bilirubin 0.5 AST 42 H ALT 29 Alkaline Phosphatase 54 Total Protein 7.8 Albumin 3.8 09/26/23 09/26/23 16:02 13:15 WBC RBC Hgb Hct MCV MCH MCHC RDW Coeff of [place] Plt Count Neut % (Auto) Lymph % (Auto) [place] % (Auto) Eos % (Auto) Baso % (Auto) Neut # (Auto) Lymph # (Auto) [place] # (Auto) Eos # (Auto) Baso # (Auto) Abs Immat Gran (auto) Imm/Tot Granulo (auto) Sodium 130 L 129 L Potassium Chloride Carbon Dioxide Anion Gap BUN Creatinine Estimated Creat Clear Estimated GFR Glucose Calcium Total Bilirubin AST ALT Alkaline Phosphatase Total Protein Albumin Preliminary micro results at discharge 09/26/23 01:45 Urine Culture - Preliminary Urine,Clean Catch < 50,000 COL/ML MIXED GRAM POSITIVE DAVID ISOLATED NO FURTHER WORKUP Imaging MR Brain: Attestation: I have reviewed the pertinent imaging results. Radiologist's impression: IMPRESSION: 1. No acute infarction, mass effect, or recent intracranial hemorrhage. 2. Mild diffuse cerebral volume loss and minimal chronic microvascular ischemic changes. Additional Comments Additional comments: CTA head and neck IMPRESSION: Patent cervical arterial vasculature without hemodynamically significant luminal stenosis No intracranial proximal large vessel occlusion, flow-limiting luminal stenosis, or cerebral aneurysm.. Discharge Plan Discharge Disposition: Home, Self-Care Date of Admission: 09/25/23 23:57 Attending Provider on Discharge: Layton Grimm Primary Care Provider: Consuelo Canas Condition: Stable Anticipated Discharge Date/Time: 09/27/23 08:58 Discharge Medications: New losartan 25 mg tablet 25 mg PO DAILY Qty: 30 0RF prednisone 20 mg tablet 60 mg PO DAILY Qty: 18 0RF polyvinyl alcohol [Artificial Tears (polyvin alc)] 1.4 % drops 1 drp ophthalmic (eye) TID Qty: 15 1RF valacyclovir 500 mg tablet 500 mg PO TID Qty: 19 0RF Continued hydroxyzine HCl 10 mg tablet 10 mg PO 3XD [place] 60 mg tablet 60 mg PO DAILY Discontinued hydrochlorothiazide 12.5 mg capsule 12.5 mg PO DAILY Discharge Orders: Discharge Order (Routine); Ordered 09/27/23 Ordered By: Layton Grimm Activity Level: Activity as Tolerated Discharge Diet: Other Diet Detail: Resume previous home diet Follow Up Appointments: Consuelo Canas MD [Primary Care Provider] - None (Post hospital follow up in 3-5 days please check Basic Metabolic Panel in 3 days) Farhana Padron DO [Staff Physician] - 10/03/23 1:10 pm ([facility] for follow-up, please check Basic Metabolic Panel in 3 days) Forms: mTraks Info Instructions
--- NOTE | 2023-09-27 10:41 | PC.NURSE ---
Nursing discharge note: Pt is A&O, VSS and afebrile on day of discharge. She denies any pain or nausea. Denies any symptoms of ETOH withdrawal, CIWA scores have been negative. PIV in left hand was removed with catheter intact. TELE read SR with BBB rate in the 70s-80s. Left facial droop still present- Valacyclovir given per JUN but Hydroxyzine was non-formulary. Patient and both educated on discharge instructions and medication changes. They both verbalized understanding and their questions were answered appropriately. Pt discharged via ambulatory accompanied by her at 1040.?
== END 2023-09-27 10:42 | disposition home or self-care (01) | DRG 74 ==
LOC: ED 22:52 → MEDSURG 22:54
PROVIDERS: Hospitalist; Admitting Provider Family Medicine; Emergency Provider Emergency Medicine; PCP Family Medicine; Visit Provider Family Medicine
DX: G51.0 Bell's palsy (principal); E87.1 Hypo-osmolality and hyponatremia; Z68.41 Body mass index [BMI] 40.0-44.9, adult; F10.10 Alcohol abuse, uncomplicated; I10 Essential (primary) hypertension; E66.9 Obesity, unspecified; M85.80 Other specified disorders of bone density and structure, unspecified site; J30.89 Other allergic rhinitis
CPT/HCPCS: 36415; 70450; 70496; 70498; 70551; 80048; 80053; 80076; 80306; 81001; 82077; 83540; 83550; 84295; 85025; 85651; 86140; 87086; 93005; 99284; 99285; A9153; A9270; C9113; J7030; J7070; J7512; Q9967